=== PATIENT | female | born 1950 | race Caucasian/White ===

== ENCOUNTER → 2017-11-22 | Outpatient (CLI) | payer MEDICARE, OTHER | LOC: M.RAD 10:35 | DX: J98.4 Other disorders of lung (principal); I89.8 Other specified noninfective disorders of lymphatic vessels and lymph nodes; R00.2 Palpitations ==

== ENCOUNTER → 2018-01-03 | Outpatient (CLI) | payer MEDICARE, OTHER ==
--- NOTE | 2018-01-03 10:15 | 2DMMODE ---
[place] [address] 2 D/M-MODE ECHOCARDIOGRAM Name: SANKET MATHEWS Room: [facility]#: [id number] Admission: 01/03/18 Attend Phys: Lito Escoto, Discharge: Date of : 50 Date of Service: 01/03/18 1015 Report #: [id number] THIS REPORT FOR: //name// APPROVED REPORT Study performed: 01/03/2018 08:16:27 EXAM: Comprehensive 2D, Doppler, and color-flow Echocardiogram Patient Location: Out-Patient Status: routine BSA: 1.89 HR: 54 bpm Other Information Study Quality: Good Indications Sarcoidosis 2D Dimensions LVEF(%): 80.73 (>50%) IVSd: 10.94 (7-11mm) LVOT Diam: 20.18 (18-24mm) LVDd: 47.62 mm PWd: 9.05 (7-11mm) Ascending Ao: 30.33 (22-36mm) LVDs: 24.08 (25-40mm) Aortic Root: 30.05 mm Joy's LVEF: 80.73 % Volumes Left Atrial Volume (Systole) LA ESV Index: 14.40 mL/m2 Aortic Valve AoV Peak Billy.: 1.31 m/s AO Peak Gr.: 6.84 mmHg LVOT Max P.13 mmHg AO Mean Gr.: 3.41 mmHg LVOT Mean P.47 mmHg LVOT Max V: 0.88 m/s AO V2 VTI: 29.05 cm LVOT Mean V: 0.56 m/s ROMARIO (VTI): 2.55 cm2 LVOT V1 VTI: 23.19 cm Mitral Valve E/A Ratio: 1.19 MV Decel. Time: 225.84 [place] [address] 2 D/M-MODE ECHOCARDIOGRAM Name: SANKET MATHEWS Room: [facility]#: [id number] Admission: 01/03/18 Attend Phys: Lito Escoto, Discharge: Date of : 50 Date of Service: 01/03/18 1015 Report #: [id number] MV E Max Billy.: 0.84 m/s MV PHT: 65.49 ms MVA (PHT): 3.36 cm2 TDI E/Lateral E': 8.40 E/Medial E': 8.40 Medial E' Billy.: 0.10 m/s Lateral E' Billy.: 0.10 m/s Pulmonary Valve PV Peak Billy.: 0.73 m/s PV Peak Gr.: 2.15 mmHg Left Ventricle The left ventricle is normal size. There is normal LV segmental wall motion. There is normal left ventricular wall thickness. Left ventricular systolic function is normal. The left ventricular ejection fraction is within the normal range. LVEF is 55-60%. The left ventricular diastolic function is normal. Right Ventricle The right ventricle is normal size. The right ventricular systolic function is normal. Atria The left atrium size is normal. The right atrium size is normal. Aortic Valve The aortic valve is normal in structure. No aortic regurgitation is present. There is no aortic valvular stenosis. Mitral Valve Mild mitral annular calcification. Trace mitral regurgitation. No evidence of mitral valve stenosis. Tricuspid Valve The tricuspid valve is normal in structure. There is no tricuspid valve regurgitation noted. Pulmonic Valve The pulmonary valve is normal in structure. Mild pulmonic regurgitation. Great Vessels The aortic root is normal in size. IVC is normal in size and collapses with >50% [place] [address] 2 D/M-MODE ECHOCARDIOGRAM Name: SANKET MATHEWS Room: [facility]#: [id number] Admission: 01/03/18 Attend Phys: Lito Escoto, Discharge: Date of : 50 Date of Service: 01/03/18 1015 Report #: [id number] Pericardium There is no pericardial effusion. <Conclusion> The left ventricle is normal size. There is normal left ventricular wall thickness. Left ventricular systolic function is normal. The left ventricular ejection fraction is within the normal range. LVEF is 55-60%. The left ventricular diastolic function is normal. The right ventricle is normal size. The left atrium size is normal. The aortic valve is normal in structure. Mild mitral annular calcification. Trace mitral regurgitation. No evidence of mitral valve stenosis. The tricuspid valve is normal in structure. IVC is normal in size and collapses with >50% inspiration There is no pericardial effusion. There is normal LV segmental wall motion. <ELECTRONICALLY SIGNED> By: Antonio Tanner MD, FACC 01/03/18 1015 1015 [id number] Antonio Tanner MD, FACC /INF
== END ==
LOC: M.CRD 07:34
DX: I37.1 Nonrheumatic pulmonary valve insufficiency (principal); I34.8 Other nonrheumatic mitral valve disorders

== ENCOUNTER → 2018-03-17 | Outpatient (CLI) | payer MEDICARE, OTHER | LOC: M.RAD 02-24 10:20 | DX: Z12.31 Encounter for screening mammogram for malignant neoplasm of breast (principal); Z13.820 Encounter for screening for osteoporosis; M85.89 Other specified disorders of bone density and structure, multiple sites; I10 Essential (primary) hypertension; E11.9 Type 2 diabetes mellitus without complications; E78.5 Hyperlipidemia, unspecified; J45.909 Unspecified asthma, uncomplicated; K21.9 Gastro-esophageal reflux disease without esophagitis; Z78.0 Asymptomatic menopausal state ==

== ENCOUNTER → 2018-05-17 | Outpatient (CLI) | payer MEDICARE, OTHER | LOC: M.RAD 09:48 | DX: M19.079 Primary osteoarthritis, unspecified ankle and foot (principal); M79.672 Pain in left foot ==

== ENCOUNTER 2019-08-26 17:55 | Emergency (ER) | payer MEDICARE, OTHER ==
[~2019-08-26] VITALS: Ht 160 cm; Wt 83.0 kg
[2019-08-26] MEDS ORDERED: TOPROL XL25 MG PO (18:20)
[2019-08-26] MEDS ORDERED: OMEPRAZOLE 20 M20 M1 PO (18:20)
[2019-08-26] MEDS ORDERED: NORVASC 2.5 MG2.5 M1 PO (18:20)
[2019-08-26] MEDS ORDERED: SIMVASTATIN40 MG PO (18:21)
[2019-08-26] MEDS ORDERED: VENTOLIN HFA 1818 GM INH (18:21)
[2019-08-26] MEDS ORDERED: ADVAIR 100-501 EACH INH (18:21)
[2019-08-26] MEDS ORDERED: SINGULAIR 10 MG10 M1 PO (18:21)
[2019-08-26] MEDS ORDERED: NORCO 5-325 TA1 EAC1 PO (20:12)
[2019-08-26 20:33] VITALS: BP 159/78
== END 2019-08-26 20:33 | disposition home or self-care (01) ==
LOC: M.ERS 17:55
DX: M25.461 Effusion, right knee (principal); I10 Essential (primary) hypertension; J45.909 Unspecified asthma, uncomplicated; K21.9 Gastro-esophageal reflux disease without esophagitis; E78.5 Hyperlipidemia, unspecified; Z90.710 Acquired absence of both cervix and uterus

== ENCOUNTER 2019-12-27 09:07 | Emergency (ER) | payer MEDICARE, OTHER ==
[~2019-12-27] VITALS: Ht 162.6 cm; Wt 81.7 kg
[~2019-12-27 09:07] MED LIST: ADVAIR 100-501 EACH INH; NORCO 5-325 TA1 EAC1 PO; NORVASC 2.5 MG2.5 M1 PO; OMEPRAZOLE 20 M20 M1 PO; SIMVASTATIN40 MG PO; SINGULAIR 10 MG10 M1 PO; TOPROL XL25 MG PO; VENTOLIN HFA 1818 GM INH
[2019-12-27] MEDS ORDERED: ASA81BEC PO (09:23)
[2019-12-27 09:55] VITALS: BP 172/73
== END 2019-12-27 09:56 | disposition home or self-care (01) ==
LOC: M.ERS 09:07
DX: S50.01XA Contusion of right elbow, initial encounter (principal); R23.8 Other skin changes; I10 Essential (primary) hypertension; J45.909 Unspecified asthma, uncomplicated; K21.9 Gastro-esophageal reflux disease without esophagitis; E78.5 Hyperlipidemia, unspecified; Z90.710 Acquired absence of both cervix and uterus; X58.XXXA Exposure to other specified factors, initial encounter; Y93.89 Activity, other specified; Y92.89 Other specified places as the place of occurrence of the external cause; Y99.8 Other external cause status

== ENCOUNTER → 2020-01-18 | Outpatient (CLI) | payer MEDICARE, OTHER ==
[~2020-01-18] MED LIST changes: +ASA81BEC PO
== END ==
LOC: M.LAB 16:45
PROVIDERS: ATTEND Internal Medicine Gastroenterology
DX: Z01.812 Encounter for preprocedural laboratory examination (principal); Z11.59 Encounter for screening for other viral diseases; K21.9 Gastro-esophageal reflux disease without esophagitis; R12 Heartburn; R19.4 Change in bowel habit; R15.9 Full incontinence of feces; Z80.0 Family history of malignant neoplasm of digestive organs

== ENCOUNTER → 2021-02-17 | Outpatient (CLI) | payer MEDICARE, OTHER | LOC: M.RAD 09:57 | PROVIDERS: ATTEND Family Medicine | DX: Z12.31 Encounter for screening mammogram for malignant neoplasm of breast (principal); N64.89 Other specified disorders of breast ==

== ENCOUNTER 2021-02-26 11:25 | Emergency (ER) | payer MEDICARE, OTHER ==
[~2021-02-26] VITALS: Ht 162.6 cm; Wt 90.7 kg
[2021-02-26] MEDS ORDERED: MACROBID 100 M100 MG PO (11:34)
[2021-02-26 11:49] LABS: URINE BILIRUBIN NEGATIVE (Negative); URINE BLOOD NEGATIVE (Negative); URINE CLARITY CLEAR; URINE COLOR YELLOW; URINE GLUCOSE-RANDOM NEGATIVE (Negative); URINE KETONES NEGATIVE (Negative); URINE LEUKOCYTES NEGATIVE (Negative); URINE NITRITE NEGATIVE (Negative); URINE PROTEIN NEGATIVE (Negative); URINE SPECIFIC GRAVITY 1.015 (1.005-1.030); URINE UROBILINOGEN 0.2 E.U./dl (0.2-1.0)
[2021-02-26 12:02] LABS: ABSOLUTE EOSINOPHILS 0.2 thou/uL (0.0-0.7); ABSOLUTE LYMPHOCYTES 0.8 thou/uL (0.8-5.3); ABSOLUTE MONOCYTES 0.5 thou/uL (0.0-1.2); ABSOLUTE NEUTROPHILS 8.4 thou/uL (1.6-8.1); BASOPHILS 0.5 %; EOSINOPHILS 1.7 %; HEMATOCRIT 45.7 % (37.0-47.0); HEMOGLOBIN 15.2 gm/dL (12.0-15.0); LYMPHOCYTES 8.1 %; MCH 30.8 pg (26.0-34.0); MCHC 33.2 g/dL (28.0-37.0); MCV 92.6 fL (80.0-100.0); MONOCYTES 4.9 %; MPV 8.9 fl. (7.2-11.1); NUCLEATED RBCS 0 /100WBC; POLYS 84.8 %; RBC 4.94 mil/uL (4.20-5.00); RDW-CV 13.2 % (10.5-14.5); WBC 9.9 thou/uL (4.0-11.0)
[2021-02-26 12:15] LABS: CALCIUM 9.4 mg/dL (8.5-10.1)
[2021-02-26 12:20] LABS: ALBUMIN 4.2 g/dL (3.4-5.0); TOTAL BILIRUBIN 1.3 mg/dL (<0.1-1.0); TOTAL PROTEIN 7.8 g/dL (6.4-8.2)
[2021-02-26 12:28] LABS: PLATELET COUNT* 169 thou/uL (150-400); PLATELET ESTIMATE DECREASED
[2021-02-26] MEDS ORDERED: CIPROFLOXACIN500 M1 PO (13:12)
[2021-02-26] MEDS ORDERED: PYRIDIUM200 MG PO (13:12)
[2021-02-26 13:27] VITALS: BP 180/80
[2021-02-27] MEDS ORDERED: XANAX 0.5 MG0.5 MG PO (12:26)
== END 2021-02-26 13:27 | disposition home or self-care (01) ==
LOC: M.ERS 11:25
PROVIDERS: Emergency Medicine
DX: N39.0 Urinary tract infection, site not specified (principal); R11.0 Nausea; I10 Essential (primary) hypertension; J45.909 Unspecified asthma, uncomplicated; K21.9 Gastro-esophageal reflux disease without esophagitis; E78.5 Hyperlipidemia, unspecified; Z98.890 Other specified postprocedural states; Z90.710 Acquired absence of both cervix and uterus; Z89.421 Acquired absence of other right toe(s)

== ENCOUNTER 2021-02-27 10:28 | Emergency (ER) | payer MEDICARE, OTHER ==
[~2021-02-27] VITALS: Ht 162.6 cm; Wt 90.7 kg
[~2021-02-27 10:28] MED LIST changes: +CIPROFLOXACIN500 M1 PO; +MACROBID 100 M100 MG PO; +PYRIDIUM200 MG PO
[2021-02-27] MEDS ORDERED: XANAX 0.5 MG0.5 MG PO (12:26)
[2021-02-27 12:34] VITALS: BP 118/68
== END 2021-02-27 12:35 | disposition home or self-care (01) ==
LOC: M.ERS 10:28
DX: F41.9 Anxiety disorder, unspecified (principal); Z20.822 Contact with and (suspected) exposure to COVID-19; I10 Essential (primary) hypertension; E78.5 Hyperlipidemia, unspecified; J45.909 Unspecified asthma, uncomplicated; Z90.710 Acquired absence of both cervix and uterus

== ENCOUNTER 2021-04-22 09:12 | Emergency (ER) | payer MEDICARE, OTHER ==
[~2021-04-22] VITALS: Ht 162.6 cm; Wt 90.7 kg
[~2021-04-22 09:12] MED LIST changes: +XANAX 0.5 MG0.5 MG PO
[2021-04-22] MEDS ORDERED: MACROBID 100 M100 MG PO (09:25)
[2021-04-22 09:55] LABS: URINE BILIRUBIN NEGATIVE (Negative); URINE BLOOD NEGATIVE (Negative); URINE CLARITY CLEAR; URINE COLOR YELLOW; URINE GLUCOSE-RANDOM NEGATIVE (Negative); URINE KETONES TRACE (Negative); URINE LEUKOCYTES-REFLEX 1+ (Negative); URINE NITRITE-REFLEX NEGATIVE (Negative); URINE PROTEIN TRACE (Negative); URINE SPECIFIC GRAVITY 1.015 (1.005-1.030); URINE UROBILINOGEN 0.2 E.U./dl (0.2-1.0)
[2021-04-22 10:00] LABS: CASTS None Seen /LPF (None Seen); MUCUS 4-6 Moderate strn/LPF (None Seen); SQUAMOUS 0-3 Few /LPF (0-3); URINE RBC 0-2 Rare /HPF (0-2); URINE WBC-REFLEX 6-15 Few /HPF (0-5)
[2021-04-22 10:01] LABS: CRYSTALS None Seen /LPF (None Seen)
[2021-04-22 10:11] LABS: ABSOLUTE EOSINOPHILS 0.1 thou/uL (0.0-0.7); ABSOLUTE LYMPHOCYTES 0.5 thou/uL (0.8-5.3); ABSOLUTE MONOCYTES 0.4 thou/uL (0.0-1.2); ABSOLUTE NEUTROPHILS 9.5 thou/uL (1.6-8.1); BASOPHILS 0.2 %; EOSINOPHILS 0.8 %; HEMATOCRIT 41.1 % (37.0-47.0); HEMOGLOBIN 14.1 gm/dL (12.0-15.0); LYMPHOCYTES 4.4 %; MCH 31.7 pg (26.0-34.0); MCHC 34.3 g/dL (28.0-37.0); MCV 92.3 fL (80.0-100.0); MONOCYTES 4.2 %; MPV 8.7 fl. (7.2-11.1); NUCLEATED RBCS 0 /100WBC; PLATELET COUNT* 154 thou/uL (150-400); POLYS 90.4 %; RBC 4.45 mil/uL (4.20-5.00); RDW-CV 13.6 % (10.5-14.5); WBC 10.5 thou/uL (4.0-11.0)
[2021-04-22 10:20] LABS: CALCIUM 8.9 mg/dL (8.5-10.1); POTASSIUM 3.9 mmol/L (3.5-5.1)
[2021-04-22 10:25] LABS: ALBUMIN 3.7 g/dL (3.4-5.0); TOTAL BILIRUBIN 1.4 mg/dL (<0.1-1.0); TOTAL PROTEIN 7.2 g/dL (6.4-8.2)
[2021-04-22] MEDS ORDERED: HYDROCODON-ACE1 EAC7 PO (10:54)
[2021-04-22 11:26] VITALS: BP 144/79
== END 2021-04-22 11:27 | disposition home or self-care (01) ==
LOC: M.ERS 09:12
PROVIDERS: Family Medicine
DX: N39.0 Urinary tract infection, site not specified (principal); E11.9 Type 2 diabetes mellitus without complications; I10 Essential (primary) hypertension; J45.909 Unspecified asthma, uncomplicated; K21.9 Gastro-esophageal reflux disease without esophagitis; E78.5 Hyperlipidemia, unspecified; Z98.890 Other specified postprocedural states; Z90.711 Acquired absence of uterus with remaining cervical stump; Z89.429 Acquired absence of other toe(s), unspecified side

== ENCOUNTER → 2021-04-29 | Outpatient (CLI) | payer MEDICARE, OTHER ==
[~2021-04-29] MED LIST changes: +HYDROCODON-ACE1 EAC7 PO
--- NOTE | 2021-04-29 14:38 | 2DMMODE ---
[place] [address] 2 D/M-MODE ECHOCARDIOGRAM Name: SANKET MATHEWS Room: [facility]#: [id number] Admission: 04/29/21 Attend Phys: Lito Escoto, Discharge: Date of : 50 Date of Service: 04/29/21 1438 Report #: [id number] THIS REPORT FOR: cc: Anahi Mahoney MD, Katrina MD Liston, Michael J. MD [facility] ~ APPROVED REPORT Study performed: 04/29/2021 09:13:48 EXAM: Comprehensive 2D, Doppler, and color-flow Echocardiogram Patient Location: Out-Patient BSA: 1.91 HR: 55 bpm BP: 134/78 mmHg Other Information Study Quality: Good Indications Dyspnea 2D Dimensions IVSd: 9.79 (7-11mm) LVOT Diam: 20.29 (18-24mm) LVDd: 45.41 mm PWd: 8.52 (7-11mm) Ascending Ao: 29.50 (22-36mm) LVDs: 25.54 (25-40mm) Aortic Root: 29.43 mm Volumes Left Atrial Volume (Systole) LA ESV Index: 15.40 mL/m2 Aortic Valve AoV Peak Billy.: 1.11 m/s AO Peak Gr.: 4.89 mmHg LVOT Max P.62 mmHg AO Mean Gr.: 2.88 mmHg LVOT Mean P.44 mmHg LVOT Max V: 1.19 m/s AO V2 VTI: 25.28 cm LVOT Mean V: 0.71 m/s ROMARIO (VTI): 3.51 cm2 LVOT V1 VTI: 27.41 cm Mitral Valve E/A Ratio: 0.70 [place] [address] 2 D/M-MODE ECHOCARDIOGRAM Name: SANKET MATHEWS Room: [facility]#: [id number] Admission: 04/29/21 Attend Phys: Lito Escoto, Discharge: Date of : 50 Date of Service: 04/29/21 1438 Report #: [id number] MV Decel. Time: 294.22 ms MV E Max Billy.: 0.58 m/s MV PHT: 85.32 ms MVA (PHT): 2.58 cm2 TDI E/Lateral E': 5.80 E/Medial E': 6.44 Medial E' Billy.: 0.09 m/s Lateral E' Billy.: 0.10 m/s Pulmonary Valve PV Peak Billy.: 0.83 m/s PV Peak Gr.: 2.76 mmHg Left Ventricle The left ventricle is normal size. There is normal LV segmental wall motion. There is normal left ventricular wall thickness. Left ventricular systolic function is normal. LVEF is 60-65%. Grade I - abnormal relaxation pattern. Right Ventricle The right ventricle is normal size. The right ventricular systolic function is normal. Atria The left atrium size is normal. The right atrium size is normal. Aortic Valve The aortic valve is normal in structure. No aortic regurgitation is present. There is no aortic valvular stenosis. Mitral Valve There is mild mitral annular calcification. There is no mitral valve regurgitation noted. No evidence of mitral valve stenosis. Tricuspid Valve The tricuspid valve is normal in structure. There is no tricuspid valve regurgitation noted. Pulmonic Valve The pulmonary valve is normal in structure. Mild pulmonic regurgitation. Great Vessels The aortic root is normal in size. IVC is normal in size and collapses >50% [place] [address] 2 D/M-MODE ECHOCARDIOGRAM Name: DOROTHY MATHEWSCARMEN WOODS Room: [facility]#: [id number] Admission: 04/29/21 Attend Phys: Lito Escoto, Discharge: Date of : 50 Date of Service: 04/29/21 1438 Report #: [id number] Pericardium There is no pericardial effusion. <Conclusion> The left ventricle is normal size. There is normal left ventricular wall thickness. Left ventricular systolic function is normal. LVEF is 60-65%. Grade I - abnormal relaxation pattern. There is normal LV segmental wall motion. There is mild mitral annular calcification. Mild pulmonic regurgitation. IVC is normal in size and collapses >50% with inspiration. <ELECTRONICALLY SIGNED> By: Lito Escoto MD, FACC 04/29/21 1438 1438 1438 Lito Escoto MD, FACC /INF
== END ==
LOC: M.CRD 08:12
PROVIDERS: ATTEND Internal Medicine Cardiovascular Disease
DX: I08.8 Other rheumatic multiple valve diseases (principal); D86.9 Sarcoidosis, unspecified

== ENCOUNTER → 2021-05-08 | Outpatient (CLI) | payer MEDICARE, OTHER | LOC: M.CT 10:40 | PROVIDERS: ATTEND Internal Medicine Pulmonary Disease | DX: J98.4 Other disorders of lung (principal); D86.9 Sarcoidosis, unspecified; J45.909 Unspecified asthma, uncomplicated; R50.9 Fever, unspecified ==

== ENCOUNTER → 2021-05-14 | Outpatient (CLI) | payer OTHER | LOC: M.CT 08:49 | PROVIDERS: ATTEND Internal Medicine Cardiovascular Disease | DX: Z13.6 Encounter for screening for cardiovascular disorders (principal); I25.10 Atherosclerotic heart disease of native coronary artery without angina pectoris ==